=== PATIENT | male | born 2000 | race Caucasian/White ===

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

== ENCOUNTER 2024-11-20 22:59 | Inpatient (IN) | payer BC ==
--- NOTE | 2024-11-21 00:02 | ED ---
Psych HPI - General Chief Complaint: Psychiatric Symptoms Stated Complaint: petition Time Seen by Provider: 11/20/24 23:19 Source: police Mode of arrival: ambulatory - History of Present Illness Initial Comments: Patient is a 24-year-old man brought to have psychiatric evaluation. The patient, per the petition, had wrapped a cord around his neck and told his brother that he was going to end his life due to gambling problem. The patient does admit to making statements about killing himself, but he tells me he was not serious. Patient states that he has seen counselor in the past but that did not help him. MD Complaint: suicidal ideation -: hour(s) Associated Psychiatric Symptoms: depression, suicidal ideation Quality: getting worse Improves With: none Worsens With: none Context: significant life stressor Associated Symptoms: denies other symptoms - Related Data Previous Rx's Medication Instructions Recorded Sertraline [Zoloft] 50 mg PO DAILY #30 tab 11/24/24 buPROPion XL [Wellbutrin XL] 300 mg PO DAILY #30 tab 11/24/24 traZODone HCL [Desyrel] 50 mg PO HS PRN #30 tab 11/24/24 Allergies Allergy/AdvReac Type Severity Reaction Status Date / Time No Known Allergies Allergy Verified 11/20/24 23:12 Review of Systems ROS Statement: Those systems with pertinent positive or pertinent negative responses have been documented in the HPI. ROS Other: All systems not noted in ROS Statement are negative. Constitutional: Denies: fever, chills Respiratory: Denies: cough, dyspnea Cardiovascular: Denies: chest pain, palpitations Gastrointestinal: Denies: abdominal pain, vomiting, diarrhea Musculoskeletal: Denies: back pain Skin: Denies: rash Neurological: Denies: headache, weakness Psychiatric: Reports: depression, suicidal thoughts. Denies: auditory hallucinations, visual hallucinations, homicidal thoughts Past Medical History Past Medical History: No Reported History History of Any Multi-Drug Resistant Organisms: None Reported Past Surgical History: No Surgical Hx Reported Past Psychological History: ADD/ADHD Smoking Status: Vaper Past Alcohol Use History: None Reported Past Drug Use History: None Reported General Exam Limitations: no limitations General appearance: alert, in no apparent distress Head exam: Present: atraumatic, normocephalic Eye exam: Present: normal appearance. Absent: scleral icterus, conjunctival injection Neck exam: Present: normal inspection Respiratory exam: Present: normal lung sounds bilaterally. Absent: respiratory distress, wheezes, rales, rhonchi, stridor, accessory muscle use Cardiovascular Exam: Present: regular rate, normal rhythm, normal heart sounds. Absent: systolic murmur, diastolic murmur, rubs, gallop GI/Abdominal exam: Present: soft. Absent: distended, tenderness, guarding, rebound, rigid, mass Extremities exam: Present: normal inspection, normal capillary refill. Absent: pedal edema, calf tenderness Back exam: Present: normal inspection. Absent: CVA tenderness (R), CVA tenderness (L) Neurological exam: Present: alert Psychiatric exam: Present: depressed, suicidal ideation. Absent: agitated, anxious, flat affect, manic, homicidal ideation Skin exam: Present: warm, dry, intact, normal color. Absent: rash Course Vital Signs 11/20/24 23:10 Temperature 98.4 F Pulse Rate 86 Respiratory 18 Rate Blood Pressure 127/87 O2 Sat by Pulse 100 Oximetry Medical Decision Making - Medical Decision Making Was pt. sent in by a medical professional or institution (, PA, RIB TRIM SEPARATOR, urgent care, hospital, or retirement...) When possible be specific @ -[No] Did you speak to anyone other than the patient for history (EMS, parent, family, police, friend...)? What history was obtained from this source @ -[No] Did you review nursing and triage notes (agree or disagree)? Why? @ -[I reviewed and agree with nursing and triage notes] Were old charts reviewed (outside hosp., previous admission, EMS record, old EKG, old radiological studies, urgent care reports/EKG's, retirement records)? Report findings @ -[No old charts were reviewed] Differential Diagnosis (chest pain, altered mental status, abdominal pain women, abdominal pain men, vaginal bleeding, weakness, fever, dyspnea, syncope, headache, dizziness, GI bleed, back pain, seizure, CVA, palpatations, mental health, musculoskeletal)? @ -[Differential Mental Health Depression, anxiety, bipolar, psychosis, schizophrenia, borderline personality, situational depression, adjustment disorder, behavioral disorder, brain tumor, malingering, substance abuse, encephalopathy, medication reaction, dementia, hypothyroidism, degenerative neurologic disorder, lupus.... This is not meant to be all-inclusive list EKG interpreted by me (3pts min.). @ -[As above] X-rays interpreted by me (1pt min.). @ -[None done] CT interpreted by me (1pt min.). @ -[None done] U/S interpreted by me (1pt. min.). @ -[None done] What testing was considered but not performed or refused? (CT, X-rays, U/S, labs)? Why? @ -[None] What meds were considered but not given or refused? Why? @ -[None] Did you discuss the management of the patient with other professionals (professionals i.e. DrTonia, PA, RIB TRIM SEPARATOR, lab, RT, psych nurse, addiction social worker, supervisor tree trimming, teacher, commanding officer traffic division, disease case manager)? Give summary @ -[No] Was smoking cessation discussed for >3mins.? @ -[No] Was critical care preformed (if so, how long)? @ -[No] Were there social determinants of health that impacted care today? How? (Homelessness, low income, unemployed, alcoholism, drug addiction, transportation, low edu. Level, literacy, decrease access to med. care, long term, rehab)? @ -[No] Was there de-escalation of care discussed even if they declined (Discuss DNR or withdrawal of care, Hospice)? DNR status @ -[No] What co-morbidities impacted this encounter? (DM, HTN, Smoking, COPD, CAD, Cancer, CVA, ARF, Chemo, Hep., AIDS, mental health diagnosis, sleep apnea, morbid obesity)? @ -[None] Was patient admitted / discharged? Hospital course, mention meds given and route, prescriptions, significant lab abnormalities, going to OR and other pertinent info. @ -[Patient is a 24-year-old man with mood disorder who will be admitted for further inpatient psychiatric care Undiagnosed new problem with uncertain prognosis? @ -[No] Drug Therapy requiring intensive monitoring for toxicity (Heparin, Nitro, Insulin, Cardizem)? @ -[No] Were any procedures done? @ -[No] Diagnosis/symptom? @ -[Acute mood disorder with suicidal ideation Acute, or Chronic, or Acute on Chronic? @ -[Acute Uncomplicated (without systemic symptoms) or Complicated (systemic symptoms)? @ -[Uncomplicated Side effects of treatment? @ -[No] Exacerbation, Progression, or Severe Exacerbation? @ -[No] Poses a threat to life or bodily function? How? (Chest pain, [place], [place], pneumonia, PE, COPD, DKA, ARF, appy, cholecystitis, CVA, Diverticulitis, Homicidal, Suicidal, threat to staff... and all critical care pts) @ -[Yes there is risk of progression to suicide attempts/completion All treatments are based on ideal body weight as in ED triage - Lab Data Result diagrams: 11/22/24 07:45 11/22/24 07:45 Lab Results 11/21/24 Range/Units 03:32 Influenza Type A (PCR) Not Detected (Not Detectd) Influenza Type B (PCR) Not Detected (Not Detectd) RSV (PCR) Not Detected (Not Detectd) SARS-CoV-2 (PCR) Not Detected (Not Detectd) Disposition Clinical Impression: Mood disorder Disposition: ADMITTED IP TO THIS [facility] Condition: Fair Is patient prescribed a controlled substance at d/c from ED?: No
[2024-11-21] MEDS ORDERED: LORazepam 2 MG/ML INJ IM PRN ×2 (04:59→05:33)
[2024-11-21] MEDS ORDERED: HALOPERIDOL LACTATE 5 MG/ML 1 ML VIAL IM PRN ×2 (05:01→05:33)
[2024-11-21] MEDS ORDERED: diphenhydrAMINE 50 MG/ML 1 ML VIAL IM PRN (05:01)
[2024-11-21] MEDS: NICOTINE 21MG/24HR PATCH TRANSDERM STA (05:16)
[2024-11-21] MEDS ORDERED: MAG HYDROX/AL HYDROX/SIMETH 355 ML BOTTLE PO PRN (05:33)
[2024-11-21] MEDS ORDERED: IBUPROFEN 600 MG TAB PO PRN (05:33)
[2024-11-21] MEDS ORDERED: MAGNESIUM HYDROXIDE 2,400 MG/30 ML CUP PO PRN (05:33)
[2024-11-21] MEDS ORDERED: ACETAMINOPHEN TAB 325 MG TAB PO PRN (05:33)
[2024-11-21] MEDS ORDERED: haloperidoL 5 MG TAB PO PRN (05:43)
[2024-11-21] MEDS: NICOTINE GUM (POLACRILEX) 2 MG GUM BUCCAL PRN ×2 (09:55→16:03)
[2024-11-21] MEDS: SERTRALINE 50 MG TAB PO SCH (14:44)
--- NOTE | 2024-11-21 19:26 | P.HP ---
Psychiatric H&P - . H&P Date: 11/21/24 History & Physical: 11/21/24 13:53 History & Physical: IDENTIFYING DATA: Rodrigo Purvis is a 24 year old single male with past psychiatric history of ADHD and financial problems related to gambling. HPI: Per EPS note, "Pt. found pacing in his room. Pt states "I can't just sit here. I have ADHD. I don't even know why I have to be here. Pt. is vague and refuses to talk about making a noose and placing it in the basement over the rafters (per petition). Pt. does not deny these actions nor that he is having suicidal ideation after losing a large sum of money gambling. Pt. admits he suffers from gambling addiction. States "I've lost my car and now my house". Pt. is insistant that he needs to leave and "is fine" however he avoids any talk of being safe if he leaves. Pt only makes vague comments such as "I need to work tomorrow" and "I can't sleep here"." Per petition completed by his mother, he was found by his brother making a noose to kill himself. He states his brother was next to him the entire time and patient had a ratchet strap, patient reports his brother took it from him and brother called their mother. He states it was "just a heat of the moment thing" and he attempts to minimize the suicidal behavior. He reports his main stress comes from financial stress. He reports he has quite a few bills, and then tried gambling to win some money but it didn't work out. He reports he goes gambling twice a month online, reports he used to saleem much more than this and has a gambling destiny on his phone, but this time didn't have the gambling destiny on his computer. He reports he started gambling at age 19 yo while on a cruise. He reports his main motivation for gambling is the bills he has. He denies needing to saleem increasing amounts in order to achieve desired excitement. He reports a couple times he won $30,000 in one night and gambled it away. He claims he does not enjoy gambling and only does it to pay bills. He admits to repeated attempts to cut back, stop or control gambling. He submitted a paperwork to the state to block his SSN to prevent him from gambling; reports he submitted it 1.5 weeks ago and it takes 45 days to process it by the state. He denies being preoccupied with gambling, states he "hates gambling". He admits to gambling when feeling sad or depressed or helpless. He has lied to conceal his gambling from others. He admits he has sacrificed relationships with family so he could saleem. He has relied on family for small amount of money. He last gambled two days ago online on his home computer. He reports he lost $400 gambling. He reports depressed mood that started over the past year, denies any prior history of depression. He reports feeling scatter brained with difficulty concentrating, decreased sleep, admits to feelings of "quite a bit of guilt", low energy, some psychomotor slowing, some loss of interest. He is focused on discharge and wants to return to work as soon as possible due to his financial problems. He denies history of musa. He denies auditory or visual hallucinations. He uses marijuana 2-3 times per week "to go to bed" He denies any other illicit drug use Alcohol: denies Nicotine: vapes PAST PSYCHIATRIC HISTORY: Diagnoses: "ADHD", social anxiety Hospitalizations: He states this is his first psychiatric hospitalization. Past medication trials: Nancy Lackey starting in middle school and through high school for ADHD Past outpatient providers: ADHD meds were prescribed by Dr. Juarez (PCP), no psychiatric follow-up History of suicide attempts: None prior to this time History of self-harm: Denies PMH: Denies ALLERGIES: NKDA CHEMICAL DEPENDENCY HISTORY: He uses marijuana 2-3 times per week "to go to bed" He denies any other illicit drug use Alcohol: denies Nicotine: vapes FAMILY PSYCHIATRIC/SUBSTANCE USE HISTORY: Cousin with cerebral palsy. Denies any family history of mental illness or substance abuse. SOCIAL HISTORY: Patient was born and raised in [place], [place]. Parents , has older brother and younger sister. Reports he is close with his family. He lives with his older brother in a duplex. He graduated high school. 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 Denies legal problems. His car broke down, is borrowing his boss's car to get to/from work. MENTAL STATUS EXAM: General Appearance: Patient appears to be well-nourished adult male, mustache, appears to have fair hygiene and grooming. Behavior: Patient is seated without any agitated behavior. Speech: Patient's speech is fluent and non-pressured. Mood/Affect: Patient reports their mood is depressed, affect is congruent Suicidality/Homicidality: Patient denies having any suicidal or homicidal ideation intent or plan currently. Perceptions: Patient denies any visual hallucinations and denies any auditory hallucinations Though content/process: There is no evidence of any delusional thought content, and thought process is generally linear. Memory and concentration: AOX3, grossly intact for the purposes of this session. Judgment and insight: Poor since he tends to minimize his suicidal behavior. STRENGTHS/WEAKNESSES: Strength is that he is able to make needs known, has good family support. Weakness is that he is impulsive. INTELLECT: Average IMPRESSIONS: Major depressive disorder, single episode, severe Gambling Disorder, mild PLAN: -Patient was admitted under petition and certification and is currently agreeing to treatment and signed AFV for voluntary status to [facility] for stabilization of psychiatric symptoms and safety. Patient has signed adult voluntary form and medication consent and is placed in patient's chart. -Medications: Start Zoloft 50 mg daily for depression and anxiety. Start Wellbutrin XL 150 mg daily in the morning starting tomorrow morning for depression/ADHD. -Ativan and Haldol PRN for agitation/aggression. -Patient was counseled on substance abuse and desired to discontinue vaping. -Patient was informed of the risks, benefits and side effects of the medication and patient verbally consented to taking the medications. -Internal Medicine consult to perform medical evaluation and physical. -NRT -nicotine patch - on board for discharge planning. Encourage patient to participate in groups to work on coping skills. 11/21/24 19:22
[2024-11-21] MEDS: traZODone HCL 50 MG TAB PO PRN (20:31)
[2024-11-22 07:58] LABS: Basophils % (A) 1 %; Eosinophils # (A) 0.2 k/uL (0-0.7); Eosinophils % (A) 4 %; HCT 44.1 % (39.0-53.0); Lymphocytes # (A) 2.3 k/uL (1.0-4.8); Lymphocytes % (A) 40 %; MCH 30.7 pg (25.0-35.0); MCHC 34.1 g/dL (31.0-37.0); Mean Platelet Volume 7.2; Monocytes # (A) 0.4 k/uL (0-1.0); Monocytes % (A) 7 %; Neutrophils # (A) 2.7 k/uL (1.3-7.7); Neutrophils % (A) 47 %; Platelet Count 256 k/uL (150-450); RDW 12.3 % (11.5-15.5); WBC 5.9 k/uL (3.8-10.6)
[2024-11-22] MEDS: buPROPion XL 150 MG TAB.ER.24H PO SCH (08:02)
[2024-11-22 08:14] LABS: Potassium 4.4 mmol/L (3.5-5.1)
[2024-11-22 08:15] LABS: ALT 201 U/L (4-49); AST 139 U/L (17-59); African American GFR (CKD) >90 (>60 ml/min/1.73 sqM); Albumin 4.6 g/dL (3.5-5.0); Alkaline Phosphatase 74 U/L (38-126); Anion Gap 7 mmol/L; Blood Urea Nitrogen 9 mg/dL (9-20); Calcium 9.7 mg/dL (8.4-10.2); Carbon Dioxide 30 mmol/L (22-30); Chloride 105 mmol/L (98-107); Glucose 89 mg/dL (74-99); Non-African American GFR(CKD) >90 (>60 ml/min/1.73 sqM); Sodium 142 mmol/L (137-145); Total Bilirubin 0.8 mg/dL (0.2-1.3); Total Protein 7.1 g/dL (6.3-8.2)
--- NOTE | 2024-11-22 08:25 | P.PN ---
Subjective Progress Note Date: 11/22/24 Principal diagnosis: diagnosis major depression single episode Gambling disorder subjective the patient says that he is not suicidal and that he is working on plans to do okay after discharge. He says that he is very impulsive both in the issue of threatening suicide and in gambling. Says it been treated most of his life with Focalin or Vyvanse for ADHD. But he became too old to see his sort operations supervisor and didn't find another doctor was trying to function without medications. 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 He also has a lifelong difficulty with distractibility losing things forgetting things and did much better when he took Vyvanse or Focalin. He thinks if he can get a doctor who will prescribe the medicine that he needs he will be impulsive. He said he had no difficulty with the side effects of these his Zoloft or Wellbutrin yesterday.he said that he slept well last night and has good appetite Objective the patient is alert lessened cooperative reasonable self-care gait and station are normal good eye contact normal response time affect is open incongruous and no evidence of depression or tearfulness.he denies suicidality or homicidality and there is no evidence of psychosis. Assessment patient has a bit of a flight into health I think the Wellbutrin so good idea to do think he needs to get an appointment outpatient doctor and restart the medicines for ADHD and he needs to work on a discharge plan. Plan: Increase Wellbutrin to 300 have the patient work on a discharge planning goes the programming. Objective - Vital Signs Vital signs: Vital Signs Temp 97.4 F L 11/21/24 09:51 Pulse 84 11/21/24 09:51 Resp 18 11/20/24 23:10 BP 122/79 11/21/24 09:51 Pulse Ox 100 11/21/24 09:51 FiO2 - Labs CBC & Chem 7: 11/22/24 07:45 11/22/24 07:45 Labs: Abnormal Lab Results - Last 24 Hours (Table) 11/22/24 Range/Units 07:45 AST 139 H (17-59) U/L ALT 201 H (4-49) U/L
[2024-11-22] MEDS: buPROPion XL 300 MG TAB.ER.24H PO SCH (10:13)
[2024-11-22] MEDS: buPROPion XL 150 MG TAB.ER.24H PO STA (11:02)
[2024-11-22] MEDS: LORazepam 1 MG TAB PO PRN (11:24)
[2024-11-22 17:27] LABS: Appearance,Urine Clear (Clear); Bilirubin,Urine Negative (Negative); Blood,Urine Negative (Negative); Color,Urine Colorless; Glucose,Urine (UA) Negative (Negative); Ketones,Urine Negative (Negative); Leukocyte Esterase,Urine Negative (Negative); Nitrite,Urine Negative (Negative); PH, Urine 6.5 (5.0-8.0); Protein,Urine Negative (Negative); Specific Gravity,Urine 1.003 (1.001-1.035); Urobilinogen,Urine <2.0 mg/dL (<2.0)
[2024-11-22 23:02] LABS: Urine Alcohol Negative (Negative); Urine Barbiturate Negative (Negative); Urine Cocaine Negative (Negative); Urine Methadone Negative (Negative); Urine Opiates Negative (Negative); Urine Phencyclidine Negative (Negative)
[2024-11-23 07:16] VITALS: RESP 16
[2024-11-23] MEDS: buPROPion XL 300 MG TAB.ER.24H PO SCH (07:46)
[2024-11-23] MEDS ORDERED: buPROPion XL 300 MG TAB.ER.24H PO SCH (09:00)
--- NOTE | 2024-11-23 10:44 | P.PN ---
Subjective Progress Note Date: 11/23/24 Principal diagnosis: diagnosis major depression single episode Gambling disorder subjective the patient says that he is not suicidal and that he is working on plans to do okay after discharge. He says that he is very impulsive both in the issue of threatening suicide and in gambling. Says he has been treated most of his life with Focalin or Vyvanse for ADHD. But he became too old to see his it business analyst and didn't find another doctor. He was trying to function without medications. 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 He also has a lifelong difficulty with distractibility, losing things, forgetting things and did much better when he took Vyvanse or Focalin. He would like help finding a doctor who will prescribe the medicine that he needs. He said he had no difficulty with the side effects of these. He is tolerating his Zoloft and Wellbutrin . He said that he slept well last night and has good appetite Objective the patient is alert lessened cooperative reasonable self-care gait and station are normal good eye contact normal response time affect is open incongruous and no evidence of depression or tearfulness.he denies suicidality or homicidality and there is no evidence of psychosis. Assessment patient has a bit of a flight into health I think the Wellbutrin so good idea to do think he needs to get an appointment outpatient doctor and restart the medicines for ADHD and he needs to work on a discharge plan. Plan: Increase Wellbutrin to 450 tomorrow if he tolerates it today at the higher dose. We will have the patient work on a discharge plan, go the programming. Objective - Vital Signs Vital signs: Vital Signs Temp 97.9 F 11/23/24 06:56 Pulse 110 H 11/23/24 06:56 Resp 16 11/23/24 06:56 BP 102/67 11/23/24 06:56 Pulse Ox 98 11/23/24 06:56 FiO2 Intake & Output 11/22/24 11/23/24 11/23/24 18:59 06:59 18:59 Weight 72.575 kg - Labs CBC & Chem 7: 11/22/24 07:45 11/22/24 07:45
[2024-11-23 11:00] LABS: T4, Free (Free Thyroxine) 1.09 ng/dL (0.78-2.19)
--- NOTE | 2024-11-24 01:45 | P.CONS ---
History of Present Illness - Reason for Consult Consult date: 11/24/24 - History of Present Illness The patient is a 24-year-old male with a PMH of ADHD who had presented to the emergency room with complaints of depression and suicidal ideation. The patient was admitted to mental health unit where he was seen and evaluated. The patient reports that he has been struggling with thoughts of depression and suicide due to his recent exam with addiction. He also reports having diarrhea recently break-up which also worsened this mental health. Denied further complaints at the time of interview. Denied experiencing chest discomfort, shortness of breath, cough, nausea, vomiting, abdominal pain, diarrhea. Patient denies alcohol, tobacco, or substance use. Laboratory evaluation was remarkable for TSH of 0.410 with free T4 1.09, and free T3 3.30 with negative UA and urine toxicology. Review of systems: Pertinent positives and negatives as discussed in HPI, a complete review of systems was performed and all other systems are negative. Physical examination: General: non toxic, no distress, appears at stated age, normal weight Derm: no unusual rashes/lesions, no unusual ecchymoses, warm, dry Head: atraumatic, normocephalic, symmetric Eyes: EOMI, no lid lag, anicteric sclera ENT: Nose and ears atraumatic, no thrush, no pharyngeal erythema Neck: trachea midline, supple Mouth: no lip lesion, mucus membranes moist Cardiovascular: S1S2 reg, no murmur, no edema Lungs: CTA bilateral, no rhonchi, no rales , no accessory muscle use Abdominal: soft, nontender to palpation, no guarding Ext: no gross muscle atrophy, no contractures, Neuro: No gross focal neuro deficits noted Psych: Alert, oriented, appropriate affect Assessment: Low TSH with normal free T4, likely subclinical hyperthyroidism Depression and suicidal ideation Imaging: None performed Data Review: Laboratory evaluation was remarkable for TSH of 0.410 with free T4 1.09, and free T3 3.30 with negative UA and urine toxicology. Plan: No intervention currently needed for subclinical hypothyroidism Defer management of depression and suicidal ideation to the primary psychiatry service Thank you for allowing us to participate in the care of this patient. We will follow peripherally. Do not hesitate to contact us with questions. Someone can be reached from the [facility] hospitalist group at all hours of the day at [phone]. Past Medical History Past Medical History: No Reported History History of Any Multi-Drug Resistant Organisms: None Reported Past Surgical History: No Surgical Hx Reported Past Psychological History: ADD/ADHD Smoking Status: Vaper Past Alcohol Use History: None Reported Past Drug Use History: None Reported Medications and Allergies Home Medications Medication Instructions Recorded Confirmed Type No Known Home Medications 11/22/24 11/22/24 History Allergies Allergy/AdvReac Type Severity Reaction Status Date / Time No Known Allergies Allergy Verified 11/20/24 23:12 Physical Exam Vitals: Vital Signs Temp Pulse Resp BP Pulse Ox 11/23/24 06:56 97.9 F 110 H 16 102/67 98 Results CBC & Chem 7: 11/22/24 07:45 11/22/24 07:45
[2024-11-24 07:23] VITALS: BP 118/75; PULSE 108; TEMP 97.8
--- NOTE | 2024-11-24 12:05 | P.DS ---
Providers Date of admission: 11/21/24 05:17 Attending physician: Yamil Arreguin MD Consults: 11/21/24 05:33 Consult Physician Routine Consulting Provider: Antonia Lange Consult Reason/Comments: Medical managment Do you want consulting provider notified?: Yes Primary care physician: Osmani Gutierrezudi - Discharge Diagnosis(es) (1) Major depressive disorder with single episode Current Visit: Yes Status: Acute (2) Gambling disorder, mild Current Visit: Yes Status: Chronic (3) ADHD (attention deficit hyperactivity disorder) Current Visit: Yes Status: Chronic Hospital Course: Admission HPI: Admission note was completed by Dr. Gunderson. "Per EPS note, "Pt. found pacing in his room. Pt states "I can't just sit here. I have ADHD. I don't even know why I have to be here. Pt. is vague and refuses to talk about making a noose and placing it in the basement over the rafters (per petition). Pt. does not deny these actions nor that he is having suicidal ideation after losing a large sum of money gambling. Pt. admits he suffers from gambling addiction. States "I've lost my car and now my house". Pt. is insistant that he needs to leave and "is fine" however he avoids any talk of being safe if he leaves. Pt only makes vague comments such as "I need to work tomorrow" and "I can't sleep here"." Per petition completed by his mother, he was found by his brother making a noose to kill himself. He states his brother was next to him the entire time and patient had a ratchet strap, patient reports his brother took it from him and brother called their mother. He states it was "just a heat of the moment thing" and he attempts to minimize the suicidal behavior. He reports his main stress comes from financial stress. He reports he has quite a few bills, and then tried gambling to win some money but it didn't work out. He reports he goes gambling twice a month online, reports he used to saleem much more than this and has a gambling destiny on his phone, but this time didn't have the gambling destiny on his computer. He reports he started gambling at age 19 yo while on a cruise. He reports his main motivation for gambling is the bills he has. He denies needing to saleem increasing amounts in order to achieve desired excitement. He reports a couple times he won $30,000 in one night and gambled it away. He claims he does not enjoy gambling and only does it to pay bills. He admits to repeated attempts to cut back, stop or control gambling. He submitted a paperwork to the state to block his SSN to prevent him from gambling; reports he submitted it 1.5 weeks ago and it takes 45 days to process it by the state. He denies being preoccupied with gambling, states he "hates gambling". He admits to gambling when feeling sad or depressed or helpless. He has lied to conceal his gambling from others. He admits he has sacrificed relationships with family so he could saleem. He has relied on family for small amount of money. He last gambled two days ago online on his home computer. He reports he lost $400 gambling. He reports depressed mood that started over the past year, denies any prior history of depression. He reports feeling scatter brained with difficulty concentrating, decreased sleep, admits to feelings of "quite a bit of guilt", low energy, some psychomotor slowing, some loss of interest. He is focused on discharge and wants to return to work as soon as possible due to his financial problems. He denies history of musa. He denies auditory or visual hallucinations." Hospital course: Upon admission to the unit patient was directable and agreeable to commence treatment and signed adult voluntary form patient got along well with other patients on the unit and followed unit protocol. Patient was compliant with the medications. He was started on sertraline 50 mg daily and Wellbutrin XL 150 mg daily. Wellbutrin XL was increased to 300 mg daily. Trazodone was also available as needed for insomnia. He felt some jitteriness on increased dose of Wellbutrin; discussed continuing at that dose to acclimate prior to further adjustment. Patient spoke of his stressors, primarily financial, and engaged in therapy both group and individual. Patient was also seen by medical team for history and physical exam. Throughout the course of the hospitalization patient gradually improved with regards to mood, anxiety, sleep and became more future oriented with improving insight and judgment. He expressed evolving insight in regards to the steps he has taken and will take to abstain from gambling, including recently filing a form with the [facility] to prevent access to online or in person gambling. Additionally, he expressed commitment to use the apps on his phone and computer that prevent access to gambling sites. He expressed emerging insight about the harms he experienced secondary to gambling. He was able to engage with family members and openly talk to them about his struggles, which resulted in him feeling supported. On the day of discharge patient denied any suicidal or homicidal ideations, intent, or plan and denied any auditory or visual hallucinations. Patient endorsed wanting to live for their future, expressed future-orientation in getting back to work. The patient denied any access to guns or weapons. Patient denied any paranoia and did not endorse any delusions. Patient does not have a significant history of substance abuse and was counseled on abstaining from all substances including alcohol and marijuana. Patient was also counseled on the medications and need for regular compliance and was encouraged to follow-up with their outpatient appointment for mental health and also for primary care. Mental status exam: General Appearance: Patient appears to be stated age is alert, pleasant, and cooperative. Patient is in no acute distress and has reasonable hygiene and grooming. Behavior: Patient is calmly seated without any agitated behavior. Speech: Patient's speech is fluent and nonpressured. Mood/Affect: Patient reports their mood is "good", affect is congruent and euthymic. Suicidality/Homicidality: Patient denies having any suicidal or homicidal ideation, intent, or plan. Perceptions: Patient denies any auditory or visual hallucinations. Though content/process: There is no evidence of any delusional thought content and thought process is linear and goal-directed. Patient is future-oriented in their desire to stop gambling and return to work. Memory and concentration: AOX3, grossly intact for the purposes of this session. Judgment and insight: Improved with optimistic prognosis given patient's age, willingness to engage in treatment, and lack of chronicity Impression: Major depressive disorder, mild, with anxious distress Gambling disorder, mild Nicotine dependence History of ADHD Plan: -Continue with discharge today as patient has improved and stabilized psychiatrically and is not currently an imminent threat to themself and/or others. -Continue medications: Sertraline 50 mg daily and Wellbutrin XL 300 mg daily (this was titrated to help with mood and ADHD symptoms). Trazodone 50 mg at bedtime was started as needed for insomnia. -Patient was counseled on the need for medication compliance and appropriate follow-up at mental health and also primary care for medical issues. Patient verbalized understanding and agreed. -Social work to help coordinate patients discharge today and arrange for patients follow up appointments for psychiatric care along with follow up with primary care provider. -Patient counseled on abstaining from recreational drugs and marijuana and a lcohol. Was informed/educated on the adverse effects on their physical and mental health. Patient verbally agreed and understood. -Patient was instructed to return to the hospital or seek immediate medical care if their psychiatric or medical symptoms do worsen or reoccur. Plan - Discharge Summary Discharge Rx Participant: Yes New Discharge Prescriptions: New traZODone HCL [Desyrel] 50 mg PO HS PRN #30 tab PRN Reason: Insomnia buPROPion XL [Wellbutrin XL] 300 mg PO DAILY #30 tab Sertraline [Zoloft] 50 mg PO DAILY #30 tab Discharge Medication List Sertraline [Zoloft] 50 mg PO DAILY #30 tab 11/24/24 [Rx] buPROPion XL [Wellbutrin XL] 300 mg PO DAILY #30 tab 11/24/24 [Rx] traZODone HCL [Desyrel] 50 mg PO HS PRN #30 tab 11/24/24 [Rx] Follow up Appointment(s)/Referral(s): [facility] [place][Note 3] [place] [Outside] - 12/01/24 5:00 pm (Olinda Alegria virtual appt please check email for virtual information) Osmani Andrew MD [Primary Care Provider] - 1-2 days Patient Instructions/Handouts: Depression (DC) Activity/Diet/Wound Care/Special Instructions: [facility] Discharge Info Avoid the use of street drugs and alcohol. Take all medications as prescribed. When you are in need of refills on your medications, please contact your outpatient medical provider and/or outpatient psychiatrist. Please go to your scheduled outpatient appointments for aftercare treatment. If symptoms return or become worse, call the crisis line at or and/or visit the nearest emergency room for assistance. National Suicide and Crisis Lifeline - call or text 656
== END 2024-11-24 13:15 | disposition home or self-care (01) | DRG 885 ==
LOC: EC 22:59 → 3MHU 11-21 05:17
PROVIDERS: ADMIT Psychiatry & Neurology Psychiatry; ATTEND Psychiatry & Neurology Psychiatry
DX: F32.0 Major depressive disorder, single episode, mild (principal); R45.851 Suicidal ideations; F63.0 Pathological gambling; F90.9 Attention-deficit hyperactivity disorder, unspecified type; F17.200 Nicotine dependence, unspecified, uncomplicated; E05.90 Thyrotoxicosis, unspecified without thyrotoxic crisis or storm; F12.90 Cannabis use, unspecified, uncomplicated; Z79.899 Other long term (current) drug therapy
CPT/HCPCS: 80053; 80306; 81003; 83036; 84439; 84443; 84481; 85025; 87636; 99285